=== PATIENT | female | born 1965 | race Caucasian/White ===

== ENCOUNTER → 2018-10-10 10:54 | Outpatient (CLI) | payer BC, SELFPAY ==
--- NOTE | 2018-10-10 10:00 | BRBX_PTH ---
PATIENT: ALEXANDRU HIGHTOWER LOC: [facility] U#:[id number] AGE/SX: 60/F ROOM: RE10/10/[address]: Dr. Arturo Garza MD : 1965 BED: DIS: SPEC #: [id number] RECD: 10/10/18 10:52 STATUS: GABBY BERTO #: [id number] TONY: 10/10/18 10:[address]: Arturo Garza DEPT: SURGICAL PATHOLOGY RECD BY: Anushka Weinberg Tissues: Right breast, NOS Procedures: Surgery Specimen Level IV HEADER OPERATION: Right breast core biopsy PRE-OP DIAGNOSIS: Abnormal right breast ultrasound TISSUE SUBMITTED: Right breast tissue ISCHEMIC TIME: 1 minute FIXATION TIME: 9.5 hours MICROSCOPIC DIAGNOSIS Right breast, ultrasound-guided core biopsy: Collagenized stroma. No evidence of malignancy. AM:bulmaro 10/11/18 COMMENT Case has been reviewed in consultation with Dr. Muñoz who concurs with the above diagnosis. IDC:SJ MICROSCOPIC DESCRIPTION Slides are reviewed. GROSS DESCRIPTION Received in fixative is one container labeled with the patient's name and designated right breast at 10 o'clock. The specimen consists of multiple elongated fragments of beverly-yellow fibroadipose tissue that in aggregate measure 2 x 0.3 x 0.1 cm. The entire specimen is submitted in one cassette. / MIGUEL:bulmaro 10/10/18 TC:5 CPT: 33728
[2018-10-10 10:21] VITALS: BMI 30.8
== END ==
PROVIDERS: Referring Provider Surgery; Visit Provider Surgery
DX: R92.8 Other abnormal and inconclusive findings on diagnostic imaging of breast (principal)
CPT/HCPCS: 88305

== ENCOUNTER 2021-05-03 18:30 | Outpatient (RCR) | payer BC, SELFPAY ==
[2018-10-10 10:21] VITALS: BMI 30.8
--- NOTE | 2021-04-21 12:48 | HP.PTEVAL_ITS ---
Patient's Visit Information ALEXANDRU GOMEZ is a 55 year old F referred to Physical Therapy by Dr. Chelsy Payne MD with a diagnosis of RIGHT SHOULDER PAIN. Date of Evaluation: 04/21/21 Physical Therapist: Nicolas Monsivais, PT, Cert MDT, OCS - Visit Plan Frequency: 2x /Week Duration: 4 Weeks Plan: PT INTERVTIONS RTC/SCAPULAR STRENGTHENING,POSTURAL EX'S ,ADN MODALTIES PRN - Subjective This 55 y/o female presents to physical therapy with right shoulder pain. 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 Pain got better but most recently aggravating pain with general activity lifting walking dog. Thus seen seen DR mcclain . Pain located global shoulder ache lateral deltoid. Aggravating factors OH activities, lifting affects ADL'S and housework tasks/self hygiene washing hair. Patient pain affects sleeping on right sh oulder. Denies paresthesia/tingling. Patient has had no diagnostics and MEDS. Alleviating factors avoid activities aleve. Patient pain affects housework tasks and ADL'S. Patient pain affects QOL. SOCIAL: . VOCATION: Teacher reading - Pain Right Shoulder Pain Intensity (Out of 10): 7 Pain Intensity Range: 10 - Objective POSTURE: rounded shoulder head. PALAPTION: unremarkable. NEURO: denies paresthesia /tingling. AROM: flexion 160 degrees, abduction 160 degrees, ER 90 degrees, IR T12. MMT : infraspinatus 4/5, supraspinatus 4-/5 mild pain, subscapulris 4/5,deltoid 4-/5 anterior/lateral 4-/5,SCAPULAR MT/LT 4-/5 - Special Tests R Shoulder External Rotation Lag Test - RC Tear: Negative R Shoulder Supine Impingement Test - RC Tear: Negative R Shoulder Drop Sign - IS Test: Negative R Shoulder Empty Can - SS: Negative R Shoulder Belly Press - SupScap: Negative R Shoulder Neer - Impingement: Negative R Shoulder Beth Julio - Impingement: Negative - Goals Goal 1:: I with HEP Goal Time Frame: 2-4 Weeks Goal 2:: Decrease shoulder pain by 70% or > to improve function with ADLS' and housework Goal Time Frame: 2-4 Weeks Goal 3:: Patient to improve strength 4+/5 RTC and deltoid 4/5 to improve function with OH Goal Time Frame: 2-4 Weeks Goal 4:: Patient to improve QUICK DASH by 5 points or > to improve function and QOL. - Rehabilitation Potential Physical Therapy Diagnosis: This right shoulder pain with possible tendinosis with pain during functional activities with OH and housework tasks with impingement along with pain with RTC testing thus benefit from skilled PT Rehabilitation Potential: Good - Anticipated Interventions Patient/Client Instruction: Educate patient on: Condition, Plan of Care For the Purpose of:: To decrease pain, To increase ROM, To improve nutrient delivery to tissue, To increase oxygenation perfusion, To improve muscle performance and motor function, To improve ability to perform ADL's, To increase tolerance to activity/condition/position, To improve ability of physical actions for home/community/work/leisure, To improve health of tissue, To decrease soft tissue restriction, To reduce risk of recurrence, To improve ability to perform tasks related to life management Therapeutic Exercise to Include: Strength training, Postural training, Scapular Strength/Stabilization Comment: RTC For the Purpose of:: To decrease pain, To improve muscle performance and motor function, To improve ability to perform ADL's, To increase tolerance to activity/condition/position, To improve ability of physical actions for home/community/work/leisure, To improve health of tissue, To decrease soft tissue restriction, To reduce risk of recurrence, To improve ability to perform tasks related to life management TENS: Yes IF ES: Yes Cryotherapy (ice pack, ice massage): Yes Thermo therapy (hot pack): Yes Ultrasound (thermal/non thermal): Yes For the Purpose of:: To decrease pain, To improve nutrient delivery to tissue, To increase oxygenation perfusion, To improve health of tissue, To decrease soft tissue restriction Thank you for the opportunity to evaluate your patient. For Medicare and Medicare HMO plans, please review the plan of care and approve it. It will need to be FAXED BACK to us at [phone] for Medicare purposes. For Medicare only, by signing this I certify the plan of care. Please let me know if there are questions or concerns regarding this plan of care. Physician Signature: Date:
--- NOTE | 2021-05-03 19:16 | HP.PTDCSUM ---
It has been my pleasure to treat ALEXANDRU GOMEZ referred by Dr. Chelsy Payne MD, with the diagnosis of RIGHT SHOULDER PAIN for a total of 2 visit(s). Discharge Date: Please see the following information for a summary of their discharge status. Subjective: NO PAIN EDILNWELL G Right Shoulder Pain Intensity (Out of 10): 0 % Improvement: 100 Objective/Function: POSTURE: WFL. SHOULDER AROM: WNL. MMT: 5/5 RTC,4/5 DELTOID Goal 1:: I with HEP Goal Progress: Goal Met Goal 2:: Decrease shoulder pain by 70% or > to improve function with ADLS' and housework Goal Progress: Goal Met Goal 3:: Patient to improve strength 4+/5 RTC and deltoid 4/5 to improve function with OH Goal Progress: Goal Met Goal 4:: Patient to improve QUICK DASH by 5 points or > to improve function and QOL. Goal Progress: Goal Met Plan: D/C TO HEP If there are questions or concerns regarding this patient's physical therapy, please feel free to call me at [phone]. Thank you for the referral of this patient. Sincerely, Nicolas Monsivais, PT, Cert MDT, OCS Balance/Gait/Functional tests - Balance/Special Test Scores Quick DASH Score: 0
== END 2021-05-03 19:00 | disposition home or self-care (01) ==
LOC: PT 18:30
PROVIDERS: PCP Family Medicine; Referring Provider Family Medicine; Visit Provider Family Medicine
DX: S46.911D Strain of unspecified muscle, fascia and tendon at shoulder and upper arm level, right arm, subsequent encounter (principal); X58.XXXD Exposure to other specified factors, subsequent encounter
CPT/HCPCS: 97110; 97162; 97530

== ENCOUNTER → 2021-06-02 | Outpatient (CLI) | payer BC, SELFPAY | END | disposition home or self-care (01) | PROVIDERS: PCP Family Medicine; Visit Provider Family Medicine | DX: R05 Cough (principal) | CPT/HCPCS: 87635; U0005; U0003 ==

== ENCOUNTER → 2023-03-06 | Outpatient (CLI) | payer BC, SELFPAY ==
--- NOTE | 2023-03-06 10:40 | BI_ITS ---
MAMMOGRAPHY - BILATERAL SCREENING REASON FOR EXAM: Female, 57 years old. Routine annual screening examination. PERTINENT HISTORY: Non-contributory. TECHNIQUE: Digital bilateral breast norma (3D mammographic acquisition) in the CC and MLO projections. 2-D mediolateral oblique (MLO) and craniocaudad (CC) views of both breasts were obtained. CAD: Full Field Digital Mammography with Computer Added Detection was performed. COMPARISON: Comparison is made with prior examination dated December 30, 2014. FINDINGS: Breast Composition: The breasts are heterogeneously dense, which may obscure small masses. A tissue clip marker is seen within a 1.5 cm x 2.2 cm well-defined nodule in the deep inferior slightly medial aspect of the right breast. No cluster of microcalcification is seen. No other significant abnormalities are identified. BI/SCRN MAMM (CAD)W/NORMA BILAT IMPRESSION: A tissue clip marker is seen within a 1.5 cm x 2.2 cm well-defined nodule in the inferior deep medial aspect of the right breast. ASSESSMENT CATEGORY: BIRADS Category 2: Benign. A letter regarding these results will be sent to the patient by the facility within 30 days. Approximately 10% of breast cancers are not detected by mammography. A normal mammogram should not delay biopsy of a clinically suspicious abnormality. [id number] Electronically Signed: Eduin Perla MD at 14:16 EDT ,
== END | disposition home or self-care (01) ==
LOC: OPBI 10:38
PROVIDERS: PCP Family Medicine; Referring Provider Family Medicine; Visit Provider Family Medicine
DX: Z12.31 Encounter for screening mammogram for malignant neoplasm of breast (principal)
CPT/HCPCS: 77063; 77067

== ENCOUNTER → 2025-04-15 | Outpatient (CLI) | payer OTHER, SELFPAY ==
[2025-04-15 15:17] LABS: Hematocrit 42.0 % (37-47); Hemoglobin 14.1 g/dL (12.0-15.0); Mean Corp Hgb Conc 33.6 g/dL (32-36); Mean Corpuscular Volume 94.6 fL (81-99); Mean Platelet Vol. 10.6 fl (6.2-12.0); Platelet Count 311 K/mm3 (150-450); RBC Distribution Width CV 12.6 % (11.6-14.6); RBC Distribution Width SD 43.5 fl (35.1-43.9); Red Blood Count 4.44 M/mm3 (4.2-5.4); White Blood Count 5.2 K/mm3 (4.4-11.0)
[2025-04-15 15:47] LABS: AST(SGOT) 26 U/L (<=31); Alanine Aminotransfer ALT/SGPT 25 U/L (<=34); Albumin, Serum 4.0 g/dL (3.5-5.0); Alkaline Phosphatase 91 U/L (35-104); Anion Gap 10 (5-15); BUN 11 mg/dL (4-19); BUN/Creat Ratio 19.2 RATIO (10-20); Calcium,Total 9.5 mg/dL (7.6-11.0); Carbon Dioxide 25.1 mmol/L (21.0-32.0); Chloride 103 mmol/L (98-108); Cholesterol 200 mg/dL (<=200); Globulin 3.2 g/dL (2.2-4.2); Glucose 105 mg/dL (70-99); Low Density Lipoprotein Calc. 123 mg/dL; Potassium 4.7 mmol/L (3.3-5.1); Triglycerides 138 mg/dL; Very Low Density Lipoprotein 28 mg/dL (5-40); cholesterol:hdl ratio screen 4.08
[2025-04-21 12:08] LABS: Vitamin D 1,25-Dihydroxy 47.2 pg/mL (24.8-81.5)
== END | disposition home or self-care (01) ==
LOC: MFPLAB 11:49
PROVIDERS: PCP Family Medicine; Visit Provider Family Medicine
DX: Z13.1 Encounter for screening for diabetes mellitus (principal); R53.83 Other fatigue; Z13.220 Encounter for screening for lipoid disorders
CPT/HCPCS: 36415; 80053; 80061; 82652; 83036; 84443; 85027

== ENCOUNTER → 2025-04-24 | Outpatient (CLI) | payer OTHER, SELFPAY ==
[2025-04-28 12:52] LABS: HPV APTIMA, High Risk Negative (Negative)
== END | disposition home or self-care (01) ==
LOC: LABSPEC 07:09
PROVIDERS: Visit Provider Nurse Practitioner Family
DX: Z12.4 Encounter for screening for malignant neoplasm of cervix (principal)
CPT/HCPCS: 87624; 88175; G0145

== ENCOUNTER → 2025-05-02 | Outpatient (CLI) | payer OTHER, SELFPAY | END | disposition home or self-care (01) | LOC: OPBI 12:57 | PROVIDERS: PCP Family Medicine; Referring Provider Nurse Practitioner Family; Visit Provider Nurse Practitioner Family | DX: Z12.31 Encounter for screening mammogram for malignant neoplasm of breast (principal) | CPT/HCPCS: 77063; 77067 ==

== ENCOUNTER 2025-06-23 16:02 | Outpatient (RCR) | payer OTHER, SELFPAY | END 2025-07-01 23:59 | LOC: NS 16:02 | PROVIDERS: PCP Family Medicine; Referring Provider Nurse Practitioner Family; Visit Provider Nurse Practitioner Family | DX: Z71.3 Dietary counseling and surveillance (principal); R73.01 Impaired fasting glucose | CPT/HCPCS: 97802 ==

== ENCOUNTER 2025-08-05 16:15 | Outpatient (RCR) | payer OTHER, SELFPAY | END 2025-08-31 23:59 | LOC: NS 16:15 | PROVIDERS: PCP Family Medicine; Referring Provider Nurse Practitioner Family; Visit Provider Nurse Practitioner Family | DX: Z71.3 Dietary counseling and surveillance (principal); R73.01 Impaired fasting glucose | CPT/HCPCS: 97803 ==

== ENCOUNTER 2025-09-09 16:33 | Outpatient (RCR) | payer OTHER, SELFPAY | END 2025-10-01 23:59 | LOC: NS 16:33 | PROVIDERS: PCP Family Medicine; Referring Provider Nurse Practitioner Family; Visit Provider Nurse Practitioner Family | DX: Z71.3 Dietary counseling and surveillance (principal); R73.01 Impaired fasting glucose | CPT/HCPCS: 97803 ==